=== PATIENT | female | born 1965 | race Caucasian/White ===

== ENCOUNTER 2020-02-24 19:14 | Emergency (ER) | payer OTHER ==
[2020-02-24 19:24] VITALS: TEMP 98.6; BMI 25.8
[2020-02-24] MEDS ORDERED: HYDROmorphone HCL CARPU-JECT 2 MG/1 ML DISP.SYRIN IVPUSH ONE (19:35)
[2020-02-24] MEDS ORDERED: ONDANSETRON 4 MG/2 ML VIAL IVPUSH PRN (19:35)
[2020-02-24] MEDS ORDERED: HYDROmorphone HCl 2 MG/ML VIAL ONE (19:42)
[2020-02-24 21:25] VITALS: BP 119/77; PULSE 92
== END 2020-02-24 21:36 | disposition home or self-care (01) ==
LOC: JER 19:14
PROC: 3E033GC Introduction of Other Therapeutic Substance into Peripheral Vein, Percutaneous Approach (ICD-10-PCS; principal; 2020-02-24)
PROC: 0QSGXZZ Reposition Right Tibia, External Approach (ICD-10-PCS; principal; 2020-02-24)
DX: S82.841A Displaced bimalleolar fracture of right lower leg, initial encounter for closed fracture (principal); W19.XXXA Unspecified fall, initial encounter
CPT/HCPCS: 27788; 70450-TC; 73610-TC-RT-FY; 73630-TC-RT-FY; 96374; 96375; 99284-25

== ENCOUNTER 2024-09-11 04:26 | Day surgery (SDC) | payer OTHER ==
[2024-09-10 09:53] VITALS: BMI 27.4
[2024-09-11] MEDS ORDERED: ACETAMINOPHEN 500 MG TABLET (FP) PO PRN (09:11)
[2024-09-11] MEDS ORDERED: DEXAMETHASONE SOD PHOSPHATE 10 MG/1 ML VIAL ONE (10:09)
[2024-09-11] MEDS ORDERED: TRIAMCINOLONE ACET 40MG/1ML VIAL ONE (10:09)
[2024-09-11] MEDS ORDERED: BUPIVACAINE HCL/PF 0.75% 10 ML VIAL ONE (10:09)
[2024-09-11] MEDS: LIDOCAINE HCL 1% PRESERVATIVE FREE - 30ML VIAL IJ ONE ×2 (10:32)
[2024-09-11] MEDS: BUPIVACAINE HCL/PF 0.75% 10 ML VIAL NR ONE ×4 (10:34)
[2024-09-11 10:54] VITALS: BP 112/68; PULSE 61; RESP 18; TEMP 97.3
== END 2024-09-11 11:01 | disposition home or self-care (01) ==
LOC: JASU-SURG 04:26
PROVIDERS: ATTEND Pain Medicine Pain Medicine
PROC: 3E0T33Z Introduction of Anti-inflammatory into Peripheral Nerves and Plexi, Percutaneous Approach (ICD-10-PCS; 2024-09-11)
PROC: 3E0T3BZ Introduction of Anesthetic Agent into Peripheral Nerves and Plexi, Percutaneous Approach (ICD-10-PCS; principal; 2024-09-11 11:00)
DX: M47.816 Spondylosis without myelopathy or radiculopathy, lumbar region (principal)
CPT/HCPCS: 76000-TC-FY; J1100

== ENCOUNTER 2024-10-17 03:59 | Day surgery (SDC) | payer OTHER ==
[2024-10-14 16:50] VITALS: BMI 26.6
[2024-10-17] MEDS ORDERED: ACETAMINOPHEN 500 MG TABLET (FP) PO PRN (08:50)
[2024-10-17 08:52] VITALS: RESP 18
[2024-10-17] MEDS: LIDOCAINE HCL 1% PRESERVATIVE FREE - 30ML VIAL IJ ONE (11:01)
[2024-10-17] MEDS: BUPIVACAINE HCL/PF 0.75% 10 ML VIAL CAUD ONE ×2 (11:04)
[2024-10-17 11:52] VITALS: BP 146/79; PULSE 63; TEMP 98.1
== END 2024-10-17 11:19 | disposition home or self-care (01) ==
LOC: JASU-SURG 03:59
PROVIDERS: ATTEND Pain Medicine Pain Medicine
PROC: 3E0T33Z Introduction of Anti-inflammatory into Peripheral Nerves and Plexi, Percutaneous Approach (ICD-10-PCS; 2024-10-17)
PROC: 3E0T3BZ Introduction of Anesthetic Agent into Peripheral Nerves and Plexi, Percutaneous Approach (ICD-10-PCS; principal; 2024-10-17 10:15)
DX: M47.816 Spondylosis without myelopathy or radiculopathy, lumbar region (principal)
CPT/HCPCS: 76000-TC-FY